=== PATIENT | male | born 1960 | race African-American/Black ===

== ENCOUNTER 2020-05-23 00:42 | Emergency (ER) | payer MEDICAID, OTHER ==
[~2020-05-23] VITALS: Ht 185.4 cm; Wt 90.9 kg
[2020-05-23] MEDS ORDERED: ONDANSETRON HCL 4MG/2ML INJ IV STA (01:47)
[2020-05-23] MEDS ORDERED: MORPHINE SULFATE 4 MG/ML CPJ (NOT FOR IM USE) IV STA (01:47)
[2020-05-23] MEDS ORDERED: SODIUM CHLORIDE 0.9% 1,000 ML IV ONE ×2 (02:00→04:30)
[2020-05-23 02:37] LABS: BASOPHILS % 0.4 % (0.0-2.0); EOSINOPHILS % 0.1 % (0.0-5.0); HEMATOCRIT. 43.8 % (42.0-52.0); HEMOGLOBIN. 15.1 g/dL (14.0-18.0); LYMPHOCYTES % 12.8 % (20.0-50.0); MEAN CORPUSCULAR HEMOGLOBIN 30.6 pg (28.0-32.0); MEAN CORPUSCULAR VOLUME 88.7 fL (80.0-94.0); MEAN PLATELET VOLUME 7.6 fl (7.4-10.4); MONOCYTES % 5.7 % (2.0-8.0); PLATELET 213 x1000/uL (130-400); RED BLOOD CELL COUNT 4.94 mill/uL (4.7-6.1); RED CELL DISTRIBUTION WIDTH 12.9 % (11.6-14.6)
[2020-05-23 02:42] LABS: CHLORIDE 108 mEq/L (98-107)
[2020-05-23 05:04] LABS: CLARITY URINE CLOUDY (CLEAR); COLOR URINE RED (YELLOW); KETONES URINE TRACE (NEGATIVE); LEUKOCYTE ESTERASE URINE 1+ (NEGATIVE); NITRITE URINE NEGATIVE (NEGATIVE); OCCULT BLOOD URINE 3+ (NEGATIVE); PH URINE >=9.0 (4.5-8.0); PROTEIN URINE 1+ (NEGATIVE); SPECIFIC GRAVITY URINE 1.013 (1.005-1.030); UROBILINOGEN URINE 0.2 E.U./dL (0.2-1.0)
[2020-05-23 06:23] VITALS: BP 149/84
== END 2020-05-23 06:25 | disposition home or self-care (01) ==
LOC: ER 01:35 → CANBEDREQ 06:31
DX: N13.2 Hydronephrosis with renal and ureteral calculous obstruction (principal); I10 Essential (primary) hypertension; Z90.5 Acquired absence of kidney
CPT/HCPCS: 36415; 74176; 80053; 81003; 83605; 83690; 85025; 96374; 96375; 99284; J2270; J2405; J7030

== ENCOUNTER 2021-08-04 10:05 | Emergency (ER) | payer OTHER ==
[~2021-08-04] VITALS: Ht 185.4 cm; Wt 93.8 kg
[2021-08-04 11:28] LABS: BASOPHILS % 0.4 % (0.0-2.0); EOSINOPHILS % 0.6 % (0.0-5.0); HEMATOCRIT. 45.7 % (42.0-52.0); HEMOGLOBIN. 15.7 g/dL (14.0-18.0); LYMPHOCYTES % 15.8 % (20.0-50.0); MEAN CORPUSCULAR HEMOGLOBIN 30.7 pg (28.0-32.0); MEAN CORPUSCULAR VOLUME 89.5 fL (80.0-94.0); MEAN PLATELET VOLUME 7.2 fl (7.4-10.4); MONOCYTES % 7.8 % (2.0-8.0); NEUTROPHILS % 75.4 % (40.0-76.0); PLATELET 214 x1000/uL (130-400); RED CELL DISTRIBUTION WIDTH 12.9 % (11.6-14.6)
[2021-08-04 11:34] LABS: CHLORIDE 104 mEq/L (98-107)
[2021-08-04] MEDS ORDERED: ASPI-1497 MT (13:18)
[2021-08-04 14:21] VITALS: BP 135/79
== END 2021-08-04 16:34 | disposition home or self-care (01) ==
LOC: ER 10:05 → CANBEDREQ 13:40 → ER 16:34
DX: G45.9 Transient cerebral ischemic attack, unspecified (principal); I10 Essential (primary) hypertension; F17.210 Nicotine dependence, cigarettes, uncomplicated; Z85.9 Personal history of malignant neoplasm, unspecified; Z98.890 Other specified postprocedural states; Z79.82 Long term (current) use of aspirin; Z88.0 Allergy status to penicillin
CPT/HCPCS: 36415; 70551; 80053; 82962; 85025; 93005; 99285